=== PATIENT | male | born 1980 | race American Indian/Alaskan Native ===

== ENCOUNTER 2018-05-07 03:00 | Emergency (ER) | payer MEDICAID ==
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
[2018-05-07 04:53] VITALS: RESP 18; TEMP 98.6
[2018-05-07 06:14] VITALS: BP 153/91; PULSE 92; O2SAT 100
== END 2018-05-07 06:17 | disposition home or self-care (01) ==
LOC: C.ER 03:00
DX: F19.10 Other psychoactive substance abuse, uncomplicated (principal)

== ENCOUNTER 2018-05-07 12:40 | Emergency (ER) | payer MEDICAID ==
[2018-05-07] MEDS ORDERED: Sodium Chloride 0.9% 1,000 ML IV ONE ×2 (13:03→14:30)
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
[2018-05-07] MEDS ORDERED: Sodium Chloride 0.9% 1,000 ML ONE (13:25)
[2018-05-07 13:28] LABS: BASO % 0.2 % (0.0-2.0); HEMOGLOBIN 14.9 g/dL (12.0-18.0); LYMPH # 1.2 K/uL (1.0-4.3); MEAN CELL VOLUME 98.1 fL (80.0-94.0); MEAN CORPUSCULAR HEMOGLOBIN 33.9 pg (27.0-31.0); MEAN CORPUSCULAR HGB CONC 34.5 g/dL (33.0-37.0); MEAN PLATELET VOLUME 9.4 fL (7.2-11.7); MONO # 0.8 K/uL (0.0-0.8); MONO % 7.1 % (0.0-10.0); NEUT # 9.6 K/uL (1.8-7.0); NEUT % 82.7 % (50.0-75.0); RBC 4.41 Mil/uL (4.40-5.90); RED CELL DISTRIBUTION WIDTH 12.9 % (11.5-14.5)
[2018-05-07 13:29] LABS: WHITE BLOOD COUNT 11.6 K/uL (4.8-10.8)
[2018-05-07 13:38] LABS: VENOUS BLOOD GAS BASE EXCESS -0.6 mmol/L (0.0-2.0); VENOUS BLOOD GAS PCO2 35 mmHg (40-60); VENOUS BLOOD GAS PO2 49 mm/Hg (30-55); VENOUS BLOOD PH 7.43 (7.32-7.43)
[2018-05-07 13:40] LABS: ACETAMINOPHEN < 10.0 ug/mL (10.0-30.0); SALICYLATE < 1.0 mg/dL 1
[2018-05-07 13:41] LABS: ALB/GLOB RATIO 1.3 (1.0-2.1); ALBUMIN 4.9 g/dL (3.5-5.0); ALT/SGPT 24 U/L (21-72); AST/SGOT 33 U/L (17-59); BLOOD UREA NITROGEN 20 mg/dL (9-20); CALCIUM 10.2 mg/dl (8.6-10.4); GFR AFRICAN-AMERICAN > 60; GFR NON-AFRICAN AMERICAN 56
[2018-05-07 13:44] LABS: SQUAMOUS EPITHIAL 4 /hpf (0-5); URINE BACTERIA RARE (<OCC); URINE BILIRUBIN NEGATIVE (NEGATIVE); URINE BLOOD NEGATIVE (NEGATIVE); URINE CLARITY Hazy (Clear); URINE COLOR Amber (YELLOW); URINE GLUCOSE (UA) NORMAL (Normal); URINE LEUKOCYTE ESTERASE NEG Leu/uL (Negative); URINE PROTEIN 2+ mg/dL (NEGATIVE)
[2018-05-07 14:06] LABS: BARBITURATES, UR NEGATIVE (NEGATIVE); OPIATES, UR NEGATIVE (NEGATIVE); PHENCYCLIDINE, UR NEGATIVE (NEGATIVE)
[2018-05-07 14:35] LABS: BENZODIAZEPINES, UR POSITIVE (NEGATIVE)
--- NOTE | 2018-05-07 15:40 | RAD ---
Date of service: 05/07/2018 PROCEDURE: CHEST RADIOGRAPH, 1 VIEW HISTORY: Detox/Psy COMPARISON: None available. FINDINGS: LUNGS: Clear. PLEURA: No pneumothorax or pleural fluid seen. CARDIOVASCULAR: Cardiomegaly OSSEOUS STRUCTURES: No significant abnormalities. VISUALIZED UPPER ABDOMEN: Normal. OTHER FINDINGS: None. IMPRESSION: Cardiomegaly. No pulmonary infiltrate
[2018-05-08 01:03] VITALS: RESP 20; TEMP 98
[2018-05-08 05:07] VITALS: BP 149/70; PULSE 83; O2SAT 98
--- NOTE | 2018-05-08 07:28 | CT ---
Date of service: 05/07/2018 PROCEDURE: CT HEAD WITHOUT CONTRAST. HISTORY: altered mental status COMPARISON: None available. TECHNIQUE: Axial computed tomography images were obtained through the head/brain without intravenous contrast. Radiation dose: Total exam DLP = 787 mGy-cm. This CT exam was performed using one or more of the following dose reduction techniques: Automated exposure control, adjustment of the mA and/or kV according to patient size, and/or use of iterative reconstruction technique. FINDINGS: HEMORRHAGE: No intracranial hemorrhage. BRAIN: Mild atrophy. Scattered focal lucencies in the subcortical and periventricular white matter suggestive for chronic microvascular ischemic change. VENTRICLES: Unremarkable. No hydrocephalus. CALVARIUM: Unremarkable. PARANASAL SINUSES: Right maxillary sinus mucosal retention cyst. Left ethmoid retention cyst. MASTOID AIR CELLS: Unremarkable as visualized. No inflammatory changes. OTHER FINDINGS: IMPRESSION: Nonspecific white matter changes. For example,there is a focal area of low attenuation within the posterior right frontal subcortical white matter on series 4, image 36. Given the patient's stated age, correlation with MRI may be helpful if clinically indicated. Mild atrophy. Sinus mucosal disease. These findings were preliminarily reported at 10:40 p.m. on 05/07/[address] Ivan Calero from [facility].
== END 2018-05-08 05:07 | disposition home or self-care (01) ==
LOC: C.ER 12:40
DX: F19.10 Other psychoactive substance abuse, uncomplicated (principal)
CPT/HCPCS: 70450; 71045; 80053; 80320; 80324; 80329; 80345; 80346; 80349; 80353; 80358; 80361; 81001; 82803; 83605; 83992; 85025; 87040; 87086; 96361; 96372; 96374; 99285; J1630; J1885; J2060; J7030

== ENCOUNTER 2018-11-30 23:14 | Emergency (ER) | payer MEDICAID ==
[2018-11-30 23:31] VITALS: BP 160/100; PULSE 100; TEMP 98.3; O2SAT 98
[2018-12-01 01:08] VITALS: RESP 16
== END 2018-12-01 00:15 | disposition left against medical advice (07) ==
LOC: C.ER 23:14
DX: Z02.89 Encounter for other administrative examinations (principal); F19.10 Other psychoactive substance abuse, uncomplicated

== ENCOUNTER 2019-02-15 16:04 | Emergency (ER) | payer MEDICAID ==
[2019-02-15 16:15] VITALS: BMI 26.8
[2019-02-15] MEDS ORDERED: Iodixanol 320 MG/ML 100 ML BOTTLE IV ONE (16:27)
[2019-02-15 17:06] VITALS: O2SAT 97
[2019-02-15] MEDS ORDERED: Lidocaine 1%/Epinephrine 1:100000 30 ml vial IJ STA (17:24)
[2019-02-15 17:25] LABS: BASO % 0.2 % (0.0-2.0); EOS % 0.3 % (0.0-4.0); LYMPH # 1.7 K/uL (1.0-4.3); LYMPH % 21.1 % (20.0-40.0); MEAN CORPUSCULAR HEMOGLOBIN 34.1 pg (27.0-31.0); MEAN CORPUSCULAR HGB CONC 34.8 g/dL (33.0-37.0); MEAN PLATELET VOLUME 8.3 fL (7.2-11.7); MONO # 0.7 K/uL (0.0-0.8); MONO % 8.9 % (0.0-10.0); NEUT # 5.7 K/uL (1.8-7.0); NEUT % 69.5 % (50.0-75.0); NRBC % 0.1 % (0.0-2.0); RBC 4.41 Mil/uL (4.40-5.90); RED CELL DISTRIBUTION WIDTH 14.4 % (11.5-14.5); WHITE BLOOD COUNT 8.2 K/uL (4.8-10.8)
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
[2019-02-15 17:32] LABS: INR 1.1; PARTIAL THROMBOPLASTIN TIME 30.1 SECONDS (21-34); PROTHROMBIN TIME 11.9 SECONDS (9.7-12.2)
[2019-02-15] MEDS ORDERED: Tmp-Smz 800 mg-160 mg DS Tab PO STA (17:35)
[2019-02-15 17:37] LABS: ALB/GLOB RATIO 1.3 (1.0-2.1); ALBUMIN 4.7 g/dL (3.5-5.0); ALT/SGPT 17 U/L (21-72); AST/SGOT 38 U/L (17-59); BLOOD UREA NITROGEN 13 mg/dL (9-20); CALCIUM 9.5 mg/dl (8.6-10.4); GFR NON-AFRICAN AMERICAN > 60
[2019-02-15] MEDS ORDERED: Tmp-Smz 800 mg-160 mg DS Tab ONE (17:57)
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
[2019-02-15 18:13] VITALS: BP 159/101; PULSE 91; RESP 16; TEMP 98.1
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
== END 2019-02-15 18:10 | disposition left against medical advice (07) ==
LOC: C.ER 16:04
DX: S41.112A Laceration without foreign body of left upper arm, initial encounter (principal); W26.9XXA Contact with unspecified sharp object(s), initial encounter
CPT/HCPCS: 12002; 71045; 73060; 73206; 80053; 85025; 85610; 85730; 86850; 86900; 99285; Q9967